=== PATIENT | male | born 1965 | race Caucasian/White ===

== ENCOUNTER 2019-05-19 13:25 | Inpatient (IN) ==
[2019-05-19] MEDS ORDERED: BENADRYL IV PRN (19:08)
[2019-05-19] MEDS ORDERED: CATAPRES PO PRN (19:08)
[2019-05-19] MEDS ORDERED: REVIA PO ONE (19:09)
[2019-05-19] MEDS ORDERED: SODIUM CHLORIDE 0.9% INJ SCH (19:15)
[2019-05-19] MEDS ORDERED: NORCO-7.5 PO PRN (19:36)
[2019-05-19 19:54] LABS: BASO# 0.03 X1000 (0.0-0.2); BASO% 0.3 % (0.0-0.8); EOS# 0.04 X1000 (0.0-0.7); EOS% 0.4 % (0.0-10.0); HEMATOCRIT 49.3 % (42.0-52.0); HEMOGLOBIN 17.5 g/dL (14.0-18.0); IMM GRAN# 0.02 X1000 (0.0-0.04); IMM GRAN% 0.2 % (0.0-0.5); LYMPH# 2.11 X1000 (1.2-3.4); LYMPH% 19.9 % (20.5-51.1); MCH 35.3 PG (27-31); MCHC 35.5 g/dL (33-37); MCV 99.4 FL (81-99); MONO# 0.89 X1000 (0.11-0.59); MONO% 8.4 % (1.7-9.3); MPV 10.8 FL (7.4-10.4); NEUT# 7.51 X1000 (1.4-6.5); NEUT% 70.8 % (42.2-75.2); PLT 241 X1000 (130-400); RBC 4.96 XMIL (4.7-6.1); RDW 13.8 % (11.5-14.5)
[2019-05-19 20:19] LABS: AGAP 13; ALB/GLOB RATIO 1.6; ALBUMIN 4.5 g/dL (3.5-5.0); ALKALINE PHOSPHATASE 62 U/L (32-122); AMYLASE 45 U/L (20-200); BUN 13 mg/dL (8-22); CALCIUM 9.5 mg/dL (8.8-10.2); CHLORIDE 100 mmol/L (98-107); COSMO 285; CREATININE 1.2 mg/dL (0.7-1.2); ESTIMATED GFR > 60; GLUCOSE 104 mg/dL (70-104); GOT 25 U/L (10-34); GPT 13 U/L (10-44); MAGNESIUM 1.4 mg/dL (1.5-2.7); POTASSIUM 3.2 mmol/L (3.5-5.1); SODIUM 143 mmol/L (136-145); TCO2 30 mmol/L (25-35); TOTAL BILIRUBIN 1.14 mg/dL (0.20-1.00); TOTAL PROTEIN 7.4 g/dL (6.3-8.3)
[2019-05-19 20:21] LABS: CK PROFILE 499 U/L (24-204)
--- NOTE | 2019-05-19 20:23 | Diag Imaging Result Doc PS360 ---
EXAM: CHEST-2 VIEWS HISTORY: SOB TECHNIQUE: Chest two views COMPARISON: None. FINDINGS: The lungs are well expanded. The heart is not enlarged. The vessels are not distended. There are no infiltrates. No pleural effusions. IMPRESSION: No acute abnormality. Electronically signed by Sonny Mitchell 05/19/2019 8:20 PM
[2019-05-19 20:43] LABS: CK INDEX 0.6 (0.0-2.5); CK-MB 3.15 ng/mL (0.0-5.0)
[2019-05-19] MEDS ORDERED: KLOR-CON PO ONE (20:45)
[2019-05-19] MEDS ORDERED: MAGNESIUM SULFATE 2 GM/S.W.I. 2 GM/50 ML IVPB IV ONE (20:45)
[2019-05-19] MEDS ORDERED: M.V.I.-12 10 ML, FOLIC ACID 1 MG, MAGNESIUM SULFATE 1 GM, THIAMINE 100 MG in NS 1,000 ML IV ONE (21:00)
[2019-05-19] MEDS: NEXIUM IV SCH (21:30)
[2019-05-19] MEDS: NICODERM PATCH TD SCH (21:31)
[2019-05-19] MEDS: LOVENOX SUBQ SCH (21:32)
[2019-05-19] MEDS: FOLIC ACID 5 MG in NS 50 ML IV SCH (23:54)
[2019-05-19] MEDS: THIAMINE 100 MG in NS 50 ML IV SCH (23:54)
[2019-05-20] MEDS ORDERED: NS 500 ML ONE (00:37)
[2019-05-20] MEDS ORDERED: CYMBALTA PO SCH ×2 (07:00→09:00)
[2019-05-20] MEDS ORDERED: ZOFRAN IV PRN (08:22)
[2019-05-20] MEDS: NICODERM PATCH TD SCH (08:52)
[2019-05-20] MEDS: REVIA PO SCH (08:52)
[2019-05-20] MEDS: CYMBALTA PO SCH ×2 (08:52→08:56)
--- NOTE | 2019-05-20 09:55 | HISTORY AND PHYSICAL ---
CHIEF COMPLAINT: 1. Altered mental status. 2. Withdrawal from alcohol, smoking. 3. Hypokalemia, hypomagnesemia. HPI: He is a 54-year-old white gentleman has been battling with smoking, chronic pain, alcohol use. Lately he is getting more accidents, he was sent home from the job, he was also inebriated a week ago and was found on the floor by the with the marital problems. He was brought in by his that he needs some help. After reviewing CAGE questions, the patient has 2/4 consistent with headache due to alcohol. Last alcohol drink was Sunday. He has been drinking whiskey, beer on a daily basis. He has been admitted to the hospital with altered mental status and impending DTs. As a result, a hospital admission was warranted. PAST MEDICAL HISTORY: History of tobacco abuse, hypertension, hyperlipidemia, psoriatic rash, chronic neck pain on pain management, depression. PAST SURGICAL HISTORY: Carpal tunnel surgery on the left side. MEDICATIONS: Aspirin, Dovonex cream, duloxetine 30 mg daily, fenofibrate 160 daily, Neurontin 600 b.i.d., potassium 20 mEq daily, Howell 1 tablet p.o. b.i.d., Vascepa 1 g 2 tablets b.i.d., Ziac 5 mg twice daily. ALLERGIES: Not known. SOCIAL HISTORY: , 2 kids, global marketing coordinator. Lives in [place]. Smoking 1 pack a day and drinking alcohol on a daily basis. FAMILY HISTORY: Father at the age of 62 from heart attack. Mom is 82 years old with osteoporosis and dementia. HEALTH MAINTENANCE: Last colonoscopy 2013, last physical exam 2019. REVIEW OF SYSTEMS: HEENT: No headache. No vision problem. No earache. No sore throat. Neck: No goiter. No lymphadenopathy. No bruit. Cardiopulmonary: No chest pain, shortness of breath, PND, orthopnea. GI: History of nausea, dry heaves. No altered bowel movement, no bleeding per rectum, history of scratches on the body, bruises noted in both legs. No claudication symptoms. No bony injuries noted. Neuro: Confusion, tremor. No weakness. EXAMINATION: Temperature is 98 degrees, pulse 101, blood pressure 140/93, 6 feet tall, 240 pounds.HEENT: Plethoric face. Atraumatic, normocephalic. Pupils equal, reactive to light. TMs are normal. Nose and throat within normal limits. Neck: Supple. No lymphadenopathy. No goiter. Chest: Bilateral air entry. Heart: Sounds are regular. No murmur. Belly: Soft, obese, nontender. Good bowel sounds. Skin: Has some rashes noted from psoriatic rash. Rectal: Deferred. No peripheral edema, cyanosis. Neurologic: No focal deficits noted. LABS: CBC. White cell count 10, hematocrit 49, MCV is 99.4, platelet count 241,000. Sodium 143, potassium 3.2, chloride 100, BUN 13, creatinine 1.2, glucose 104, magnesium 1.4, bilirubin slightly high, CK of 500. Troponin index were negative. ProBNP 600. Amylase normal. Rest of the labs are pending. Chest x-ray, no acute abnormality. ASSESSMENT AND PLAN: 1. A 54-year-old white male admitted to the hospital with impending delirium tremens with batting of chronic tobacco abuse and alcohol abuse. Plan is impending DTs Ativan, clonidine, naltrexone. Will also initiate Antabuse prior to the discharge. 2. Chronic depression on Cymbalta. 3. Chronic pain under on Howell. 4. Banana bag replacement thiamine, folic acid. 5. Hypokalemia. Replace the potassium. 6. Hypomagnesemia. Replace the magnesium. 7. Hyperlipidemia on fenofibrate and Vascepa. 8. Hypertension on Ziac. 9. Status post left carpal tunnel surgery stable. Psoriatic rash on Dovonex as needed and social problems specialist consult for detox programs. The patient is committed with request of the and the family and will follow up. cc: Bandar Resendez MD [facility]
[2019-05-20] MEDS: NORCO-7.5 PO PRN (11:48)
[2019-05-20] MEDS: ATIVAN IV PRN (16:16)
[2019-05-20] MEDS: NEXIUM IV SCH (20:31)
[2019-05-20] MEDS: FOLIC ACID 5 MG in NS 50 ML IV SCH (20:31)
[2019-05-20] MEDS: LOVENOX SUBQ SCH (20:31)
[2019-05-20] MEDS: THIAMINE 100 MG in NS 50 ML IV SCH (20:40)
--- NOTE | 2019-05-20 21:06 | PROGRESS NOTE ---
DATE: 05/20/2019 SUBJECTIVE: The patient is doing a little better. Nausea. No signs of DTs noted. Very anxious. OBJECTIVE: On exam, vital signs are stable. No tremor. No tachycardia. Belly is soft, nontender. No obvious deficits noted. LABORATORY DATA: Investigations are within normal limits. ASSESSMENT AND PLAN: 1. Impending delirium tremens. Continue on clonidine, lorazepam, naltrexone. 2. We will attempt to discharge with Antabuse after detoxification. 3. Reconcile home medicines. 4. Deep vein thrombosis and gastrointestinal prophylaxis as per the order sheet. Replace the electrolytes, potassium and magnesium. Reconcile home medications with Cymbalta. Discussed the plan of care. We will get a Wool Batting Worker consult for outpatient detoxification programs. Level of documentation 25 minutes. cc: Bandar Resendez MD
[2019-05-21] MEDS: CYMBALTA PO SCH (09:04)
[2019-05-21] MEDS: LIBRIUM PO SCH ×3 (09:05→23:53)
[2019-05-21] MEDS: NICODERM PATCH TD SCH (09:05)
[2019-05-21] MEDS: REVIA PO SCH (09:05)
[2019-05-21] MEDS: NORCO-7.5 PO PRN (20:48)
[2019-05-21] MEDS: THIAMINE 100 MG in NS 50 ML IV SCH (20:50)
[2019-05-21] MEDS: LOVENOX SUBQ SCH (20:50)
[2019-05-21] MEDS: NEXIUM IV SCH (20:50)
[2019-05-21] MEDS: FOLIC ACID 5 MG in NS 50 ML IV SCH (20:51)
--- NOTE | 2019-05-21 21:38 | PROGRESS NOTE ---
DATE: 05/21/2019 SUBJECTIVE: The patient is very anxious today. OBJECTIVE: He is slightly tachycardic. Vital signs are stable. HEENT exam within normal limits. Neck is supple. Chest is clear. Heart sounds are regular. Physical exam no change. ASSESSMENT AND PLAN: Impending delirium tremens. We will start on Librium 25 q.8, and continue on naltrexone and clonidine, along with Ativan. Encouraged to abstain from smoking. Packager consult for detoxification programs. Nicotine patches for quitting smoking. Continue on thiamine and folic acid, and will closely monitor. Level of documentation is 25 minutes. cc: Bandar Resendez MD
[2019-05-22] MEDS: ATIVAN IV PRN (00:26)
[2019-05-22] MEDS: REVIA PO SCH (08:49)
[2019-05-22] MEDS: LIBRIUM PO SCH ×2 (08:49→17:23)
[2019-05-22] MEDS: NICODERM PATCH TD SCH (08:49)
[2019-05-22] MEDS: CYMBALTA PO SCH (08:49)
[2019-05-22] MEDS: NEXIUM IV SCH (21:02)
[2019-05-22] MEDS: FOLIC ACID 5 MG in NS 50 ML IV SCH (21:04)
[2019-05-22] MEDS: THIAMINE 100 MG in NS 50 ML IV SCH (21:04)
[2019-05-22] MEDS: LOVENOX SUBQ SCH (21:11)
--- NOTE | 2019-05-22 22:26 | PROGRESS NOTE ---
DATE: 05/22/2019 SUBJECTIVE: The patient is anxious to go home. He has a little bit anxious He is slightly tachycardic . PHYSICAL EXAMINATION: Vitals: Blood pressure is running high. HEENT: Exam within normal limits. Neck: Supple. Chest: Clear. Physical exam shows no change. ASSESSMENT AND PLAN: Delirium tremens. 1. Will use Librium, Ativan, naltrexone and clonidine. 2. client services account manager consult. 3. Electrolytes will be replaced. 4. My plan is outpatient detox tomorrow. We will try with naltrexone/Vivitrol injections. 5. Antabuse. 6. Continue nicotine cessation program. Discussed with the family. Will follow up. LEVEL OF DOCUMENTATION: 25 minutes. cc: Bandar Resendez MD [facility]
[2019-05-23] MEDS: LIBRIUM PO SCH ×2 (01:40→08:57)
[2019-05-23 05:35] VITALS: BP 135/85
[2019-05-23] MEDS: ATIVAN IV PRN (06:54)
[2019-05-23] MEDS: REVIA PO SCH (08:57)
[2019-05-23] MEDS: NICODERM PATCH TD SCH (08:57)
[2019-05-23] MEDS: CYMBALTA PO SCH (08:58)
--- NOTE | 2019-05-24 22:23 | DISCHARGE SUMMARY ---
ADMISSION DATE: 05/19/2019 DISCHARGE DATE: 05/23/2019 DISCHARGING DIAGNOSES: 1. Altered mental status due to delirium tremens. 2. Dehydration with hypokalemia, hypomagnesemia. 3. Chronic nicotine abuse. 4. Hypertension. 5. Hyperlipidemia. 6. Psoriatic rash. 7. Chronic neck pain due to spondylosis, under . 8. Depression. BRIEF HISTORY: Please see the H P that was done on 05/19/2019. In brief, he is a 54-year-old, white gentleman, who was admitted directly from my office with altered mental status at home, inebriated, and then he was sent home from job, that he was not right, associated with abdominal cramps, nausea, electrolyte abnormalities, and dehydration. Last alcohol drink on Sunday, and basically admitted to hospital for IV fluids, replace the electrolytes, and watch for impending DTs. He has been dependent on alcohol and nicotine. is very supportive. The patient was given thiamine, folic acid, banana bag, IV Ativan, Librium, and clonidine. He was started on naltrexone. He did not have any signs of DTs. Loan Inspector was consulted. LABORATORY: CBC: White cell count 10, hematocrit 49, platelets 241,000. Sodium 143, potassium 3.2, chloride 100, bilirubin 1.4. CK of 500. ProBNP 600. LFTs were normal. DISCHARGE INSTRUCTIONS: 1. Outpatient detox programs. 2. Sarles 7.5 q.12 as needed, duloxetine 60 daily, Vascepa 2 g b.i.d., Ziac 5 two tablets at bedtime, potassium 20 mEq daily, fenofibrate 160 daily, gabapentin 600 at bedtime, naltrexone 50 mg daily, disulfiram (Antabuse) 500 in the morning, nicotine patches. Follow up in my office next week. Also, discussed about naltrexone injections once a month. We will follow up how he does. cc: Bandar Resendez MD [facility]
== END 2019-05-23 09:37 | disposition home or self-care (01) | DRG 897 ==
LOC: DIRADM 13:25 → 3N 18:16
PROVIDERS: ADMIT Internal Medicine; ATTEND Internal Medicine
CPT/HCPCS: 71020; 71046; 80048; 80053; 82150; 82550; 82553; 83735; 83880; 84484; 85025; A9270; J1650; J2060; J2405; J3411; J3475; J7030; J7040